=== PATIENT | male | born 1960 | race Caucasian/White ===

== ENCOUNTER 2018-08-13 05:24 | Day surgery (SDC) | payer MEDICAID ==
[~2018-08-13] VITALS: Ht 170.2 cm; Wt 90.7 kg
[~2018-08-13 05:24] MED LIST: ALBU18HF2 IH; ASPI-1393 PO; EMPA10TA PO; FENO145T36 PO; GEMF600T5 PO; LORA10TA7 PO; MELO-106 PO; METF-416 PO; MOME13HF IH; MONT10TA21 PO; NABU-88 PO; SITA100T11 PO; TAMS0.4C31 PO
[2018-08-13] MEDS ORDERED: SODIUM CHLORIDE 0.9% 1,000 ML IV SCH ×2 (06:30→09:00)
[2018-08-13 06:35] LABS: CLARITY URINE CLEAR (CLEAR); COLOR URINE YELLOW (YELLOW); KETONES URINE NEGATIVE (NEGATIVE); LEUKOCYTE ESTERASE URINE NEGATIVE (NEGATIVE); NITRITE URINE NEGATIVE (NEGATIVE); OCCULT BLOOD URINE NEGATIVE (NEGATIVE); PH URINE 5.5 (4.5-8.0); PROTEIN URINE NEGATIVE (NEGATIVE); SPECIFIC GRAVITY URINE 1.025 (1.005-1.030); UROBILINOGEN URINE 0.2 E.U./dL (0.2-1.0)
[2018-08-13] MEDS ORDERED: SKIN ADHESIVE 0.7 GM EA TOP ONE (07:01)
[2018-08-13] MEDS ORDERED: BUPIVACAINE HCL 0.5% (5MG/ML) 50ML ONE (07:01)
[2018-08-13] MEDS ORDERED: FENTANYL CITRATE/PF 50MCG/ML 5ML VIAL ONE (07:17)
[2018-08-13] MEDS ORDERED: MIDAZOLAM HCL 2 MG/2 ML VIAL ONE (07:17)
[2018-08-13] MEDS ORDERED: PROPOFOL 200MG/20ML VIAL IV ONE (07:17)
[2018-08-13] MEDS ORDERED: ROCURONIUM BROMIDE 10MG/ML VIAL 5ML IV ONE (07:17)
[2018-08-13] MEDS ORDERED: CEFAZOLIN SODIUM 1000MG/VIAL ONE (07:21)
[2018-08-13] MEDS ORDERED: SODIUM CHLORIDE 0.9% 10ML VIAL ONE (07:21)
[2018-08-13] MEDS ORDERED: LIDOCAINE HCL 1% 20ML VIAL (Pyxis) INJ ONE (07:26)
[2018-08-13] MEDS ORDERED: PHENYLEPHRINE HCL 10 MG/ML 1ML (IV VIAL) IV ONE (07:53)
[2018-08-13] MEDS ORDERED: GLYCOPYRROLATE 0.2 MG/ML 2ML VIAL ONE (08:28)
[2018-08-13] MEDS ORDERED: KETOROLAC 30MG/ML VIAL ONE (08:28)
[2018-08-13] MEDS ORDERED: ONDANSETRON HCL 4MG/2ML INJ ONE (08:28)
[2018-08-13] MEDS ORDERED: HYDROMORPHONE HCL/PF 2MG/ML CPJ IV PRN (09:00)
[2018-08-13] MEDS ORDERED: ONDANSETRON HCL 4MG/2ML INJ IV PRN (09:00)
[2018-08-13] MEDS: FENTANYL CITRATE/PF 50MCG/ML 2ML VIAL IV PRN ×4 (09:28→10:05)
[2018-08-13 10:05] VITALS: BP 106/62
== END 2018-08-13 11:13 | disposition home or self-care (01) ==
LOC: OR 05:24
PROVIDERS: ATTEND Surgery
DX: K80.10 Calculus of gallbladder with chronic cholecystitis without obstruction (principal); I10 Essential (primary) hypertension; E11.9 Type 2 diabetes mellitus without complications; J45.909 Unspecified asthma, uncomplicated; Z87.891 Personal history of nicotine dependence; Z91.018 Allergy to other foods; Z91.010 Allergy to peanuts; Z91.09 Other allergy status, other than to drugs and biological substances
CPT/HCPCS: 47562; 81003; 82962; 88304; G0168; J0690; J1885; J2250; J2370; J2405; J2704; J3010; J3490; 73706